=== PATIENT | male | born 1960 | race Caucasian/White ===

== ENCOUNTER 2016-08-12 10:39 | Emergency (ER) | payer BC, OTHER ==
[~2016-08-12] VITALS: Ht 180.3 cm; Wt 86.2 kg
[2016-08-12] MEDS ORDERED: VALIUM5 MG PO (11:31)
[2016-08-12] MEDS ORDERED: NAPROSYN500 MG PO (11:31)
[2016-08-12] MEDS ORDERED: NORCO 5-325 TA1 EACH PO (11:31)
[2016-08-12 11:47] VITALS: BP 143/95
== END 2016-08-12 11:49 | disposition home or self-care (01) ==
LOC: ER 10:39
DX: M54.12 Radiculopathy, cervical region (principal); F17.210 Nicotine dependence, cigarettes, uncomplicated